=== PATIENT | male | born 1930 | race Caucasian/White ===

== ENCOUNTER → 2016-10-02 | Outpatient (CLI) | payer MEDICARE, BC ==
[~2016-10-02] MED LIST: ASPIRIN E.C. 8181 MG PO; CALTRATE-600 W600 MG PO; COSOPT EYE DROPS OP; LEVITRA; LEVOTHYROXIN0.075 MG PO; PERC2.5TAB PO; PREDNISONE10 MG PO; SYNTHROID0.05 MG/TA PO; TRAVATAN 2.5 M2.5 M1; VIAGRA50 MG PO; ZESTRIL; [UNRECOGNIZED DRUG - CODE]
== END ==
LOC: COL.RAD 13:06
DX: M48.06 Spinal stenosis, lumbar region (principal); M51.16 Intervertebral disc disorders with radiculopathy, lumbar region; M79.604 Pain in right leg; M79.605 Pain in left leg

== ENCOUNTER 2017-09-16 08:02 | Emergency (ER) | payer MEDICARE, BC ==
[~2017-09-16] VITALS: Ht 165.1 cm; Wt 65.9 kg
[~2017-09-16 08:02] MED LIST changes: -ZESTRIL; +ZESTRIL40 MG PO
[2017-09-16 08:08] VITALS: TEMP 98.7
[2017-09-16] MEDS ORDERED: PREDNISONE1 MG PO (08:21)
[2017-09-16 09:08] LABS: BASO # 0.1 (0.0-0.2); BASO % 0.4 % (0.0-2.0); EOS # 0.2 (0.0-0.7); EOS % 1.3 % (0-4.0); GRAN # 11.2 (1.4-6.5); GRAN % 86.6 % (42.2-75.2); HEMATOCRIT 39.8 % (42.0-52.0); LYMPH # 0.6 (1.2-3.4); LYMPH % 4.6 % (20.0-51.0); MEAN CELL VOLUME 103 fl (80.0-100.0); MEAN CORPUSCULAR HEMOGLOBIN 34 pg (27.0-31.0); MEAN CORPUSCULAR HGB CONC 33 g/dl (33.0-37.0); MEAN PLATELET VOLUME 9.5 fl (7.4-10.4); MONO # 0.9 (0.1-0.6); MONO % 6.6 % (1.7-9.3); PLATELET COUNT 255 K/mm3 (130-400); RED BLOOD COUNT 3.86 M/mm3 (4.20-5.60); WHITE BLOOD COUNT 12.9 K/mm3 (4.8-10.8)
[2017-09-16 09:20] LABS: ADJUSTED CALCIUM 9.6 mg/dL (8.4-10.2); ALANINE AMINOTRANSFERASE 26 U/L (21-72); ALKALINE PHOSPHATASE 71 U/L (50-136); ANION GAP 8 mmol/L (7-16); BILIRUBIN,TOTAL 0.9 mg/dL (0.0-1.0); BLOOD UREA NITROGEN 21 mg/dL (9-20); CALCIUM 9.6 mg/dL (8.4-10.2); CARBON DIOXIDE 29 mmol/L (22-30); CHLORIDE 103 mmol/L (98-107); CREATININE, serum 1.11 mg/dL (0.66-1.25); GLUCOSE 116 mg/dL (74-106); POTASSIUM 4.1 mmol/L (3.4-5.0); SODIUM 139 mmol/L (137-145); TOTAL PROTEIN 7.3 gm/dL (6.4-8.2)
[2017-09-16 09:29] LABS: B-TYPE NATRIURETIC PEPTIDE 596 pg/mL (0-450)
[2017-09-16 09:35] LABS: C-REACTIVE PROTEIN 14.3 mg/dL (0.0-0.9); TROPONIN-I < 0.012 ng/mL (0.000-0.034)
[2017-09-16 09:44] LABS: ERYTHROCYTE SEDIMENTATION RATE 67 mm/hr (0-30)
[2017-09-16 10:34] VITALS: BP 151/77; PULSE 88
[2017-09-16] MEDS ORDERED: ZITHROMAX 250M250 MG PO (10:41)
== END 2017-09-16 10:45 | disposition home or self-care (01) ==
LOC: COL.ER 08:02
PROVIDERS: Emergency Medicine
DX: J40 Bronchitis, not specified as acute or chronic (principal); M35.3 Polymyalgia rheumatica; M54.6 Pain in thoracic spine; I10 Essential (primary) hypertension; F17.210 Nicotine dependence, cigarettes, uncomplicated
CPT/HCPCS: J2270; J2405; J7030; J7050; J7512; Q9967

== ENCOUNTER → 2018-12-25 | Outpatient (CLI) | payer MEDICARE, BC ==
[~2018-12-25] MED LIST changes: +PREDNISONE1 MG PO; +ZITHROMAX 250M250 MG PO
== END ==
LOC: COL.RAD 07:50
DX: G31.9 Degenerative disease of nervous system, unspecified (principal); I67.82 Cerebral ischemia
CPT/HCPCS: A9585

== ENCOUNTER 2019-10-18 09:06 | Emergency (ER) | payer MEDICARE, BC ==
[~2019-10-18] VITALS: Ht 165.1 cm; Wt 68.2 kg
[2019-10-18 09:09] VITALS: TEMP 97
[2019-10-18 09:48] LABS: HEMOGLOBIN 11.1 g/dl (13.5-18.0); MEAN CELL VOLUME 106 fl (80.0-100.0); MEAN CORPUSCULAR HEMOGLOBIN 33 pg (27.0-31.0); MEAN CORPUSCULAR HGB CONC 31 g/dl (33.0-37.0); MEAN PLATELET VOLUME 9.6 fl (7.4-10.4); PLATELET COUNT 210 K/mm3 (130-400); RED BLOOD COUNT 3.32 M/mm3 (4.20-5.60); REDCELL DISTRIBUTION WIDTH-CV 14.5 % (11.5-14.5)
[2019-10-18 09:49] LABS: HEMATOCRIT 35.3 % (42.0-52.0)
[2019-10-18 09:54] LABS: INR 0.8 (0.8-3.0); PROTHROMBIN TIME 8.9 SECONDS (9.7-12.8)
[2019-10-18 10:00] LABS: ALBUMIN 3.5 gm/dL (3.5-5.0); BILIRUBIN,TOTAL 0.4 mg/dL (0.0-1.0); CALCIUM 8.4 mg/dL (8.4-10.2); CREATININE, serum 1.31 (0.66-1.25); POTASSIUM 4.4 mmol/L (3.4-5.0); TOTAL PROTEIN 6.2 gm/dL (6.4-8.2)
[2019-10-18 10:30] LABS: TSH w REFLEX 3.17 uIU/mL (0.465-4.680)
[2019-10-18] MEDS ORDERED: CATAPRES 0.1MG0.1 MG PO (11:41)
[2019-10-18 11:51] VITALS: BP 182/90; PULSE 79
[2019-10-18 12:25] LABS: BAND 5 % (0-10); LYMPHOCYTE 15 % (20.0-51.0); NEUTROPHILS 74 % (42.0-75.2); PLATELET ESTIMATE NORMAL (NORMAL)
== END 2019-10-18 11:51 | disposition home or self-care (01) ==
LOC: COL.ER 09:06
PROVIDERS: Family Medicine
DX: R60.9 Edema, unspecified (principal); M35.3 Polymyalgia rheumatica; N28.9 Disorder of kidney and ureter, unspecified; I10 Essential (primary) hypertension; J44.9 Chronic obstructive pulmonary disease, unspecified; F17.210 Nicotine dependence, cigarettes, uncomplicated

== ENCOUNTER → 2020-04-16 | Emergency (ER) | payer MEDICARE, BC ==
[~2020-04-16] VITALS: Ht 152.4 cm; Wt 59.1 kg
[~2020-04-16] MED LIST changes: +BACTRIM DS 8001 TAB PO; +CATAPRES 0.1MG0.1 MG PO; +MELATONIN5 M1 PO; +NORCO 325 MG-51 TAB PO; +ULTRAM 50MG TAB50 MG PO
[2020-04-16 19:27] LABS: BASO % 0.3 % (0.0-2.0); EOS % 0.1 % (0-4.0); GRAN # 8.5 (1.4-6.5); GRAN % 83.2 % (42.2-75.2); HEMATOCRIT 38.9 % (42.0-52.0); HEMOGLOBIN 12.3 g/dl (13.5-18.0); LYMPH # 0.8 (1.2-3.4); LYMPH % 7.5 % (20.0-51.0); MEAN CELL VOLUME 102 fl (80.0-100.0); MEAN CORPUSCULAR HEMOGLOBIN 32 pg (27.0-31.0); MEAN CORPUSCULAR HGB CONC 32 g/dl (33.0-37.0); MEAN PLATELET VOLUME 9.6 fl (7.4-10.4); MONO # 0.8 (0.1-0.6); PLATELET COUNT 223 K/mm3 (130-400); REDCELL DISTRIBUTION WIDTH-CV 14.4 % (11.5-14.5)
[2020-04-16 19:43] LABS: ALBUMIN 4.1 gm/dL (3.5-5.0); BILIRUBIN,TOTAL 0.6 mg/dL (0.0-1.0); C-REACTIVE PROTEIN 4.2 mg/dL (0.0-0.9); CALCIUM 9.1 mg/dL (8.4-10.2); CREATININE, serum 2.61 (0.66-1.25); POTASSIUM 5.5 mmol/L (3.4-5.0); TOTAL PROTEIN 7.5 gm/dL (6.4-8.2)
[2020-04-16 20:42] LABS: PROTHROMBIN TIME 10.6 SECONDS (9.7-12.8)
[2020-04-16 20:45] LABS: PARTIAL THROMBOPLASTIN TIME 27.5 SECONDS (26.0-37.0)
[2020-04-16 22:01] VITALS: BP 148/68; PULSE 72; TEMP 97.6
== END ==
LOC: COL.ER 18:21
PROVIDERS: Emergency Medicine
DX: S06.5X0A Traumatic subdural hemorrhage without loss of consciousness, initial encounter (principal); S51.811A Laceration without foreign body of right forearm, initial encounter; I62.03 Nontraumatic chronic subdural hemorrhage; N17.9 Acute kidney failure, unspecified; I10 Essential (primary) hypertension; F03.90 Unspecified dementia, unspecified severity, without behavioral disturbance, psychotic disturbance, mood disturbance, and anxiety; F17.210 Nicotine dependence, cigarettes, uncomplicated; Z79.52 Long term (current) use of systemic steroids; W01.198A Fall on same level from slipping, tripping and stumbling with subsequent striking against other object, initial encounter
CPT/HCPCS: J7030

== ENCOUNTER → 2020-06-02 | Outpatient (CLI) | payer MEDICARE, BC ==
[~2020-06-02] VITALS: Ht 152.4 cm; Wt 53.3 kg
[~2020-06-02] MED LIST changes: +MEGACE ORAL40 MG/ML PO; +OXY IR5 MG PO; +PROTONIX 40MG T40 MG PO; +ZESTRIL 20MG TA20 MG PO
[2020-06-02 07:14] VITALS: BP 125/76; PULSE 113
[2020-06-02 08:42] VITALS: BP 145/105; PULSE 101
== END ==
LOC: COL.RAD
DX: M51.9 Unspecified thoracic, thoracolumbar and lumbosacral intervertebral disc disorder (principal)
CPT/HCPCS: J1100

== ENCOUNTER 2020-06-16 09:44 | Emergency (ER) | payer MEDICARE, BC ==
[~2020-06-16] VITALS: Ht 152.4 cm; Wt 50.0 kg
[~2020-06-16 09:44] MED LIST changes: +PREDNISONE20 MG PO
[2020-06-16 10:00] VITALS: TEMP 97.9
[2020-06-16 11:05] LABS: BASO % 0.1 % (0.0-2.0); EOS # 0.1 (0.0-0.7); EOS % 0.5 % (0-4.0); GRAN # 14.2 (1.4-6.5); GRAN % 88.2 % (42.2-75.2); HEMATOCRIT 37.6 % (42.0-52.0); HEMOGLOBIN 12.3 g/dl (13.5-18.0); LYMPH # 0.9 (1.2-3.4); LYMPH % 5.5 % (20.0-51.0); MEAN CELL VOLUME 101 fl (80.0-100.0); MEAN CORPUSCULAR HEMOGLOBIN 33 pg (27.0-31.0); MEAN CORPUSCULAR HGB CONC 33 g/dl (33.0-37.0); MEAN PLATELET VOLUME 9.5 fl (7.4-10.4); MONO # 0.8 (0.1-0.6); MONO % 4.8 % (1.7-9.3); PLATELET COUNT 255 K/mm3 (130-400); RED BLOOD COUNT 3.71 M/mm3 (4.20-5.60); REDCELL DISTRIBUTION WIDTH-CV 15.4 % (11.5-14.5)
[2020-06-16 11:12] LABS: ALBUMIN 3.8 gm/dL (3.5-5.0); BILIRUBIN,TOTAL 0.7 mg/dL (0.0-1.0); CALCIUM 9.3 mg/dL (8.4-10.2); CREATININE, serum 2.36 (0.66-1.25); TOTAL PROTEIN 6.7 gm/dL (6.4-8.2)
[2020-06-16 13:14] VITALS: BP 141/93; PULSE 82
== END 2020-06-16 13:24 | disposition home or self-care (01) ==
LOC: COL.ER 09:44
PROVIDERS: Emergency Medicine
DX: S09.90XA Unspecified injury of head, initial encounter (principal); S22.029A Unspecified fracture of second thoracic vertebra, initial encounter for closed fracture; W18.09XA Striking against other object with subsequent fall, initial encounter; Y92.009 Unspecified place in unspecified non-institutional (private) residence as the place of occurrence of the external cause

== ENCOUNTER → 2020-07-05 | Outpatient (CLI) | payer MEDICARE, BC ==
[~2020-07-05] VITALS: Ht 165.1 cm; Wt 53.5 kg
[~2020-07-05] MED LIST changes: +ATIVAN 1MG T1 MG/TAB PO; +FENTANYL 25 MCG TD; +KADIAN10 MG PO
[2020-07-05 09:52] VITALS: BP 123/75; PULSE 114
[2020-07-05 11:45] VITALS: BP 138/87; PULSE 116
== END ==
LOC: COL.RAD 09:29
DX: M51.9 Unspecified thoracic, thoracolumbar and lumbosacral intervertebral disc disorder (principal)
CPT/HCPCS: J3301